=== PATIENT | male | born 1950 | race Caucasian/White ===

== ENCOUNTER 2021-04-07 04:54 | Day surgery (SDC) | payer OTHER ==
[2021-04-06 11:00] VITALS: BMI 23.6
[2021-04-07] MEDS ORDERED: DOCUSATE SODIUM 100 MG CAPSULE (FP) PO PRN (12:01)
[2021-04-07] MEDS ORDERED: MIDAZOLAM HCL 2 MG/2 ML SINGLE DOSE VIAL ONE ×2 (12:12→12:35)
[2021-04-07] MEDS ORDERED: ceFAZolin SODIUM 1 GM VIAL IVPB ONE ×2 (12:15→15:15)
[2021-04-07] MEDS ORDERED: ceFAZolin SODIUM 1 GM VIAL ONE ×4 (12:30→20:45)
[2021-04-07 12:46] LABS: URINE APPEARANCE CLEAR; URINE BILIRUBIN NEGATIVE (NEGATIVE); URINE COLOR YELLOW; URINE GLUCOSE (UA) NEGATIVE (NEGATIVE); URINE KETONE NEGATIVE (NEGATIVE); URINE LEUK ESTERASE NEGATIVE (NEGATIVE); URINE NITRITE NEGATIVE (NEGATIVE); URINE PROTEIN NEGATIVE (NEGATIVE)
[2021-04-07] MEDS ORDERED: oxyCODONE HCL 5 MG TABLET PO PRN ×2 (13:15→14:08)
[2021-04-07] MEDS ORDERED: ACETAMINOPHEN 325 MG TABLET (FP) PO PRN (13:15)
[2021-04-07] MEDS ORDERED: ONDANSETRON 4 MG/2 ML VIAL IVPUSH PRN (14:08)
[2021-04-07] MEDS ORDERED: PROMETHAZINE HCL 25 MG/1 ML VIAL IVPUSH PRN (14:08)
[2021-04-07] MEDS: CEFAZOLIN 1 GM in DEXTROSE 5%-WATER - 50 ML IVPB SCH ×2 (17:21→20:55)
[2021-04-07] MEDS: DEXTROSE 5%-0.45% SALINE 1,000 ML IV SCH (18:04)
[2021-04-07] MEDS ORDERED: DEXTROSE 5%-WATER - 50 ML IVPB ONE (20:45)
[2021-04-08] MEDS ORDERED: ceFAZolin SODIUM 1 GM VIAL ONE ×2 (02:08→09:08)
[2021-04-08] MEDS ORDERED: DEXTROSE 5%-WATER - 50 ML IVPB ONE ×2 (02:08→09:08)
[2021-04-08] MEDS: DEXTROSE 5%-0.45% SALINE 1,000 ML IV SCH (02:18)
[2021-04-08] MEDS: CEFAZOLIN 1 GM in DEXTROSE 5%-WATER - 50 ML IVPB SCH ×2 (02:18→09:17)
[2021-04-08 08:19] LABS: HEMATOCRIT 37.9 % (35.4-49); HEMOGLOBIN 13.3 GM/dL (11.7-16.9); MCH 30.4 pg (25.7-33.7); MEAN CELL VOLUME 86.9 fl (80-96); MEAN PLT VOLUME 7.4 fl (7.5-11.1); PLATELET COUNT 226 10^3/uL (134-434); RBC 4.36 M/mm3 (4.00-5.60); RDW 13.7 % (11.9-15.9); WHITE BLOOD COUNT 7.2 K/mm3 (4.0-10.0)
[2021-04-08 09:00] LABS: CALCIUM 7.8 mg/dL (8.5-10.1)
[2021-04-08 12:19] VITALS: BP 114/68; PULSE 89; TEMP 97.9
== END 2021-04-08 12:42 | disposition home or self-care (01) ==
LOC: JASU-SURG 04:54 → JASUSAT 04:54 → J7W 16:38 → JASUSAT 04-08 12:42
PROVIDERS: ATTEND Urology
PROC: 0VT08ZZ Resection of Prostate, Via Natural or Artificial Opening Endoscopic (ICD-10-PCS; principal; 2021-04-07 12:00)
DX: N40.1 Benign prostatic hyperplasia with lower urinary tract symptoms (principal); R35.0 Frequency of micturition; R35.1 Nocturia
CPT/HCPCS: 36415; 80048; 81003; 85027; 86850; 86900; 86901; 88305-TC; 88342-TC; 94760